=== PATIENT | male | born 1980 | race Caucasian/White ===

== ENCOUNTER 2017-01-11 17:55 | Emergency (ER) | payer OTHER ==
[2017-01-11 19:41] LABS: BASO # 0.1 K/uL (0.0-0.2); BASO % 0.7 % (0.0-2.0); EOS # 0.1 K/uL (0.0-0.7); EOS % 0.7 % (0.0-4.0); HEMATOCRIT 44.3 % (35.0-51.0); LYMPH # 1.7 K/uL (1.0-4.3); LYMPH % 22.7 % (20.0-40.0); MEAN CELL VOLUME 80.6 fL (80.0-94.0); MEAN CORPUSCULAR HEMOGLOBIN 26.3 pg (27.0-31.0); MEAN CORPUSCULAR HGB CONC 32.7 g/dL (33.0-37.0); MEAN PLATELET VOLUME 7.9 fL (7.2-11.7); MONO # 0.4 K/uL (0.0-0.8); MONO % 6.1 % (0.0-10.0); NRBC % 0.1 % (0.0-2.0); WHITE BLOOD COUNT 7.3 K/uL (4.8-10.8)
[2017-01-11 19:49] LABS: CHLORIDE 100 mmol/L (98-107); SODIUM 138 mmol/L (132-148)
[2017-01-11 19:51] LABS: ALB/GLOB RATIO 1.3 (1.0-2.1); ALKALINE PHOSPHATASE 41 U/L (38-126); AST/SGOT 32 U/L (17-59); BILIRUBIN,TOTAL 1.5 mg/dL (0.2-1.3); CARBON DIOXIDE 24 mmol/L (22-30); GFR AFRICAN-AMERICAN > 60; TOTAL PROTEIN 8.1 g/dL (6.3-8.3)
[2017-01-11 19:52] LABS: ALT/SGPT 60 U/L (21-72); BLOOD UREA NITROGEN 10 mg/dL (9-20); GLUCOSE,RANDOM 98 mg/dL (75-110)
[2017-01-11 20:16] LABS: POTASSIUM 3.6 mmol/L (3.6-5.2)
--- NOTE | 2017-01-11 22:32 | C.PDOC ---
History Of Present Illness A 36 yo male presents to the ER c/o elevated blood pressure at home today. Pt was seen by his PMD and was prescribed amlodipine 2.5 mg to take 1-2 per day. Pt was seen earlier this week at [facility] for symptoms of dizziness and left sided chest discomfort. Pt was then refereed to a second officer and was found to have a normal cardiac echo and EKG. Pt notes feeling dizziness but denies fever, chills, nausea, vomiting, chest pain, sign of weight gain, or any other complaints. Time Seen by Provider: 01/11/17 18:40 Chief Complaint (Nursing): High Blood Pressure History Per: Patient History/Exam Limitations: no limitations Onset/Duration Of Symptoms: Hrs Current Symptoms Are (Timing): Still Present Severity: Mild Recent travel outside of the [place]: No Additional History Per: Patient Past Medical History Reviewed: Historical Data, Nursing Documentation, Vital Signs Vital Signs: Last Vital Signs Temp 97.9 F 01/11/17 22:43 Pulse 77 01/11/17 22:43 Resp 16 01/11/17 22:43 BP 144/76 01/11/17 22:43 Pulse Ox 99 01/11/17 22:47 - Medical History PMH: HTN Family History: States: Unknown Family Hx - Social History Hx Alcohol Use: No Hx Substance Use: No Review Of Systems Constitutional: Positive for: Other (Elevated blood pressure. No sign of weight gain). Negative for: Fever, Chills Cardiovascular: Negative for: Chest Pain Gastrointestinal: Negative for: Nausea, Vomiting Neurological: Negative for: Dizziness Physical Exam - Physical Exam Appears: Non-toxic, No Acute Distress, Other (Obese) Skin: Warm, Dry Head: Atraumatic, Normacephalic Eye(s): bilateral: Normal Inspection, EOMI Cardiovascular: Rhythm Regular, No Murmur Respiratory: Normal Breath Sounds, No Rales, No Rhonchi, No Wheezing Extremity: Normal ROM, No Pedal Edema, No Deformity, No Swelling Neurological/Psych: Oriented x3, Normal Speech, Normal Cognition ED Course And Treatment - Laboratory Results Result Diagrams: 01/11/17 19:37 01/11/17 19:37 Lab Interpretation: Normal (trop, d-dimer, bnp all neg) ECG: Interpreted By Me ECG Rhythm: Sinus Rhythm ECG Interpretation: Normal Rate From EC O2 Sat by Pulse Oximetry: 99 (RA) Pulse Ox Interpretation: Normal - Radiology CXR: Interpreted by Me CXR Interpretation: Yes: Other (? atalectasis vs lingular infiltrate in LLL/L heart boarder- ) - Other Rad CT Chest X-Ray: Read By Radiologist (neg.) - CT Scan/US CT Chest w/o Contrast Other Rad Studies (CT/US): Interpreted By Me, Read By Radiologist CT/US Interpretation: IMPRESSION: No acute chest pathology. No focal infiltrates nor pleural effusions. Reevaluation Time: 22:30 Reassessment Condition: Improved Medical Decision Making Medical Decision Making: Plans: -CT Head and Chest -EKG -CXR -Motrin -IV fluids -Reassess and disposition On reassessment, patient is resting comfortably, and is in no acute distress. Patient was instructed to follow up with physician/clinic in 1-2 days for further evaluation. normal workup for the 3rd time this week "elevated BP" normalized during eval Amlodipine 2.5-5 mg of ? theraputic benefit No lingular/LLL PNA consider GI and GERD etiologies start pepid empirically ok to f/u as opt Disposition Doctor Will See Patient In The: Office Counseled Patient/Family Regarding: Studies Performed, Diagnosis - Disposition Referrals: Niharika Moncada MD [Staff Provider] - Disposition: HOME/ ROUTINE Disposition Time: 22:32 Condition: GOOD Additional Instructions: continue your blood pressure meds as directed by Dr. Moncada Consider pepcid 20 mg @ night for supposed GERD Maalox 30 mg 4-5x/day as needed. Prescriptions: Famotidine [Pepcid] 20 mg PO HS #30 tab Instructions: Chest Pain (ED), Gastroesophageal Reflux Disease (ED) - Clinical Impression Clinical Impression: Chest discomfort - Scribe Statement The provider has reviewed the documentation as recorded by the Scribe Howie marquez All medical record entries made by the Scribe were at my direction and personally dictated by me. I have reviewed the chart and agree that the record accurately reflects my personal performance of the history, physical exam, medical decision making, and the department course for this patient. I have also personally directed, reviewed, and agree with the discharge instructions and disposition.
--- NOTE | 2017-01-11 22:32 | C.PDOC ---
History Of Present Illness A 36 yo male presents to the ER c/o elevated blood pressure at home today. Pt was seen by his PMD and was prescribed amlodipine 2.5 mg to take 1-2 per day. Pt was seen earlier this week at [facility] for symptoms of dizziness and left sided chest discomfort. Pt was then refereed to a land agent and was found to have a normal cardiac echo and EKG. Pt notes feeling dizziness but denies fever, chills, nausea, vomiting, chest pain, sign of weight gain, or any other complaints. Time Seen by Provider: 01/11/17 18:40 Chief Complaint (Nursing): High Blood Pressure History Per: Patient History/Exam Limitations: no limitations Onset/Duration Of Symptoms: Hrs Current Symptoms Are (Timing): Still Present Severity: Mild Additional History Per: Patient Past Medical History Reviewed: Historical Data, Nursing Documentation, Vital Signs Vital Signs: Last Vital Signs Temp 98.2 F 01/11/17 21:19 Pulse 73 01/11/17 21:19 Resp 18 01/11/17 21:19 BP 153/85 H 01/11/17 21:19 Pulse Ox 99 01/11/17 21:19 - Medical History PMH: HTN Family History: States: Unknown Family Hx - Social History Hx Alcohol Use: No Hx Substance Use: No Review Of Systems Except As Marked, All Systems Reviewed And Found Negative. Constitutional: Positive for: Other (Elevated blood pressure. No sign of weight gain). Negative for: Fever, Chills Cardiovascular: Positive for: Chest Pain Gastrointestinal: Negative for: Nausea, Vomiting Neurological: Positive for: Dizziness Physical Exam - Physical Exam Appears: Non-toxic, No Acute Distress, Other (Obese) Skin: Warm, Dry Head: Atraumatic, Normacephalic Eye(s): bilateral: Normal Inspection, EOMI Cardiovascular: Rhythm Regular, No Murmur Respiratory: Normal Breath Sounds, No Rales, No Rhonchi, No Wheezing Extremity: Normal ROM, No Pedal Edema, No Deformity, No Swelling Neurological/Psych: Oriented x3, Normal Speech, Normal Cognition ED Course And Treatment - Laboratory Results Result Diagrams: 01/11/17 19:37 01/11/17 19:37 O2 Sat by Pulse Oximetry: 99 (RA) Pulse Ox Interpretation: Normal - CT Scan/US CT Chest w/o Contrast Other Rad Studies (CT/US): Interpreted By Me, Read By Radiologist CT/US Interpretation: IMPRESSION: No acute chest pathology. No focal infiltrates nor pleural effusions. Medical Decision Making Medical Decision Making: Plans: -CT Head and Chest -EKG -CXR -Motrin -IV fluids -Reassess and disposition On reassessment, patient is resting comfortably, and is in no acute distress. Patient was instructed to follow up with physician/clinic in 1-2 days for further evaluation. - Scribe Statement The provider has reviewed the documentation as recorded by the Scribe Howie marquez All medical record entries made by the Dianeibe were at my direction and personally dictated by me. I have reviewed the chart and agree that the record accurately reflects my personal performance of the history, physical exam, medical decision making, and the department course for this patient. I have also personally directed, reviewed, and agree with the discharge instructions and disposition.
[2017-01-11 22:43] VITALS: BP 144/76; PULSE 77; RESP 16; TEMP 97.9
[2017-01-11 22:46] VITALS: O2SAT 99
--- NOTE | 2017-01-12 08:18 | RAD ---
HISTORY: L chest discomfort COMPARISON: No prior. TECHNIQUE: Chest PA and lateral FINDINGS: LUNGS: Small opacity at the left lung base likely atelectasis. PLEURA: No significant pleural effusion identified. No pneumothorax apparent. CARDIOVASCULAR: Normal. OSSEOUS STRUCTURES: No significant abnormalities. VISUALIZED UPPER ABDOMEN: Normal. OTHER FINDINGS: None. IMPRESSION: Small opacity at the left lung base likely atelectasis
--- NOTE | 2017-01-12 09:30 | CT ---
PROCEDURE: CT HEAD WITHOUT CONTRAST. HISTORY: HTN, GARIBAY x 3 days COMPARISON: None available. TECHNIQUE: Axial computed tomography images were obtained through the head/brain without intravenous contrast. Radiation dose: Total exam DLP = 856.4 mGy-cm. This CT exam was performed using one or more of the following dose reduction techniques: Automated exposure control, adjustment of the mA and/or kV according to patient size, and/or use of iterative reconstruction technique. FINDINGS: HEMORRHAGE: No intracranial hemorrhage. BRAIN: No mass effect or edema. No atrophy or chronic microvascular ischemic changes. VENTRICLES: Unremarkable. No hydrocephalus. CALVARIUM: Unremarkable. PARANASAL SINUSES: Unremarkable as visualized. No significant inflammatory changes. MASTOID AIR CELLS: Unremarkable as visualized. No inflammatory changes. OTHER FINDINGS: None. IMPRESSION: No evidence of acute intracranial hemorrhage intracranial collection mass effect or midline shift. Preliminary report was submitted by [facility].
--- NOTE | 2017-01-12 09:59 | CT ---
PROCEDURE: CT Chest without contrast HISTORY: L discomfort, ? lingular vs LLL PNA COMPARISON: None. TECHNIQUE: Contiguous axial images were obtained through the chest without intravenous contrast enhancement. Sagittal and coronal reconstructions were performed. Radiation dose (DLP): 675.2 mGy-cm. This CT exam was performed using one or more of the following dose reduction techniques: Automated exposure control, adjustment of the mA and/or kV according to patient size, and/or use of iterative reconstruction technique. FINDINGS: LUNGS: No evidence of focal infiltrate or consolidation in the lungs. MEDIASTINUM: Unremarkable thoracic aorta. No aneurysm. Normal sized heart. Main pulmonary artery unremarkable. No vascular congestion. No lymphadenopathy. PLEURA: No pleural fluid. No pneumothorax. BONES: No fracture. No destructive lesion. UPPER ABDOMEN: Possible [id number] fatty liver infiltration. OTHER FINDINGS: None. IMPRESSION: No evidence of acute pulmonary disease. No evidence of infiltrate or consolidation in the lungs. No evidence of pleural effusion. Preliminary report was submitted by [facility].
--- NOTE | 2017-01-16 15:05 | CARD ---
APPROVED REPORT EKG Measurement Heart [id number] <Conclusion> Normal sinus rhythm Normal ECG
== END 2017-01-11 22:49 | disposition home or self-care (01) ==
LOC: C.ER 17:55
DX: R07.9 Chest pain, unspecified (principal); I10 Essential (primary) hypertension